=== PATIENT | male | born 1980 | race Caucasian/White ===

== ENCOUNTER → 2020-06-15 06:48 | Outpatient (CLI) | payer BC, SELFPAY ==
[2020-06-15 08:03] LABS: Hematocrit 43.5 % (41-53); Mean Corpuscular HGB Conc 34.4 % (30-36); Mean Corpuscular Hemoglobin 30.3 PG (26-34); Mean Corpuscular Volume 88.1 fL (80-100); Platelet Count 306 X10^3/uL (150-400); Red Blood Cell Count 4.93 X10^6/uL (4.5-5.9); Red Cell Distribution Width 13.3 % (11.6-14.8); White Blood Cell Count 4.9 X10^3/uL (4.5-11.0)
[2020-06-15 08:37] LABS: Alanine Aminotransferase 81 IU/L (<50); Albumin 4.6 g/dL (3.5-5.0); Albumin Globulin Ratio 1.6 (1.0-2.8); Alkaline Phosphatase 62 U/L (38-126); Aspartate Aminotransferase 44 IU/L (17-59); BUN Creatinine Ratio 18.8 (6-22); Bilirubin Total 0.9 mg/dL (0.2-1.3); Blood Urea Nitrogen 18 mg/dL (9-20); Calcium 9.3 mg/dL (8.4-10.2); Carbon Dioxide 27 mmol/L (22-32); Chloride 105 mmol/L (98-107); Cholesterol 200 mg/dL (140-199); Estimated Glomerular Filt Rate > 60.0 mL/min (>60); Globulin 2.8 g/dL (1.7-4.1); Glucose 109 mg/dL (70-100); HDL Cholesterol 40 mg/dL (40-60); HEMOLYSIS < 15 (0-50); LDL Cholesterol Calculated 141 mg/dL (<100); Potassium 4.4 mmol/L (3.4-5.1); Sodium 138 mmol/L (137-145); Total Protein 7.4 g/dL (6.3-8.2); Triglycerides 96 mg/dL (35-150)
== END ==
PROVIDERS: PCP Nurse Practitioner Family; Referring Provider Nurse Practitioner Family; Visit Provider Nurse Practitioner Family
DX: Z00.00 Encounter for general adult medical examination without abnormal findings (principal); Z13.6 Encounter for screening for cardiovascular disorders
CPT/HCPCS: 36415; 80053; 80061; 85027

== ENCOUNTER → 2021-02-22 08:18 | Outpatient (CLI) | payer BC, SELFPAY ==
[2021-02-22] MEDS: COVID-19 VACC #1, MRNA(MOD) 100 MCG/0.5 ML VIAL IM (08:26)
== END ==
PROVIDERS: PCP Nurse Practitioner Family; Visit Provider Internal Medicine
DX: Z23 Encounter for immunization (principal)
CPT/HCPCS: 0011A; 91301

== ENCOUNTER → 2021-03-22 08:09 | Outpatient (CLI) | payer BC, SELFPAY ==
[2021-03-22] MEDS: COVID-19 VACC #2, MRNA(MOD) 100 MCG/0.5 ML VIAL IM (08:14)
== END ==
PROVIDERS: PCP Nurse Practitioner Family; Visit Provider Internal Medicine
DX: Z23 Encounter for immunization (principal)
CPT/HCPCS: 0012A; 91301

== ENCOUNTER → 2021-07-04 11:01 | Outpatient (CLI) | payer BC, SELFPAY ==
[2021-07-04 12:00] LABS: COVID19 -Nasal RAPID Negative (Negative)
== END ==
PROVIDERS: PCP Nurse Practitioner Family; Visit Provider Nurse Practitioner
DX: R09.81 Nasal congestion (principal); Z20.822 Contact with and (suspected) exposure to COVID-19
CPT/HCPCS: 87635

== ENCOUNTER → 2021-08-18 06:53 | Outpatient (CLI) | payer BC, SELFPAY ==
[2021-08-18 08:41] LABS: Hemoglobin A1C% w Est Avg Glu 5.3 % (4.0-6.0)
[2021-08-18 08:49] LABS: Alanine Aminotransferase 40 IU/L (<50); Albumin 4.5 g/dL (3.5-5.0); Albumin Globulin Ratio 1.8 (1.0-2.8); Alkaline Phosphatase 61 U/L (38-126); Aspartate Aminotransferase 38 IU/L (17-59); BUN Creatinine Ratio 19.8 (6-22); Bilirubin Total 0.7 mg/dL (0.2-1.3); Blood Urea Nitrogen 18 mg/dL (9-20); Calcium 9.6 mg/dL (8.4-10.2); Carbon Dioxide 31 mmol/L (22-32); Chloride 104 mmol/L (98-107); Cholesterol 182 mg/dL (140-199); Estimated Glomerular Filt Rate > 60.0 mL/min (>60); Globulin 2.5 g/dL (1.7-4.1); Glucose 99 mg/dL (70-100); HDL Cholesterol 43 mg/dL (40-60); HEMOLYSIS < 15 (0-50); LDL Cholesterol Calculated 120 mg/dL (<100); Potassium 4.6 mmol/L (3.4-5.1); Sodium 141 mmol/L (137-145); Triglycerides 94 mg/dL (35-150)
== END ==
PROVIDERS: PCP Nurse Practitioner Family; Referring Provider Nurse Practitioner Family; Visit Provider Nurse Practitioner Family
DX: R73.9 Hyperglycemia, unspecified (principal); R74.01 Elevation of levels of liver transaminase levels; E78.2 Mixed hyperlipidemia
CPT/HCPCS: 36415; 80053; 80061; 83036

== ENCOUNTER → 2021-11-08 06:39 | Outpatient (CLI) | payer BC, SELFPAY ==
--- NOTE | 2021-11-08 | DI.MRI.S_ITS ---
PROCEDURE: MR KNEE LT WO CON INDICATIONS: Complex tear of lateral meniscus, current injury, TECHNIQUE: Noncontrast sagittal PD fast spin echo and T2 fast spin echo with fat saturation, sagittal 3-D FLASH with fat saturation; coronal T1 spin echo and PD fast spin echo with fat saturation, and axial PD fast spin echo with fat saturation through the knee. COMPARISON: [facility], CR, XR KNEE ARTHRITIC SERIES BI, 10/05/2021, 15:33. FINDINGS: Image quality: Excellent. Menisci: There is a flap tear involving the posterior horn of the lateral meniscus extending to the superior articular surface. A small displaced fragment is noted. There is a nondisplaced horizontal tear of the posterior horn of the medial meniscus. The meniscal root ligaments appear intact. Cruciate ligaments: The anterior and posterior cruciate ligaments appear intact. Medial structures: The medial collateral ligament appears intact. The semimembranosus tendon insertions and meniscocapsular junction appear intact. Visualized portions of the pes anserinus tendons appear normal. No abnormal bursal fluid. Lateral structures: The lateral collateral ligament, long and short heads of the biceps femoris tendon appear intact. The popliteus tendon appears normal. Iliotibial band appears normal. Anterior structures: The quadriceps and patellar tendons appear intact. Mild quadriceps tendinitis. Patellar alignment is normal. No femoral trochlear dysplasia or ventral trochlear prominence. No edema in the infrapatellar fat pad. Bones and cartilage: No bone marrow contusions or fractures. 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 Joint space: There is small knee joint effusion. Trace Cool's cyst. Normal appearing synovial plicae are incidentally noted. IMPRESSION: 1. There is a flap tear of the posterior horn of the medial meniscus involving the superior articular surface. A small displaced meniscal fragment is noted. 2. Nondisplaced horizontal tear of the posterior horn of the medial meniscus. 3. Mild quadriceps tendinitis. 4. Mild tricompartmental chondral malacia. 5. Small knee joint effusion. Dictated by: Austin Myles M.D. on 11/08/2021 at 8:10 Approved by: Austin Myles M.D. on 11/08/2021 at 8:17
== END ==
PROVIDERS: PCP Nurse Practitioner Family; Referring Provider Orthopaedic Surgery; Visit Provider Orthopaedic Surgery
DX: S83.271A Complex tear of lateral meniscus, current injury, right knee, initial encounter (principal); M76.892 Other specified enthesopathies of left lower limb, excluding foot; M94.262 Chondromalacia, left knee; M25.462 Effusion, left knee
CPT/HCPCS: 73721

== ENCOUNTER → 2024-10-02 07:07 | Outpatient (CLI) | payer BC, SELFPAY ==
[2024-10-02 08:40] LABS: Hematocrit 43.7 % (41-53); Mean Corpuscular HGB Conc 34.3 % (30-36); Mean Corpuscular Volume 87.4 fL (80-100); Platelet Count 320 X10^3/uL (150-400); Red Cell Distribution Width 13.1 % (11.6-14.8); White Blood Cell Count 4.8 X10^3/uL (4.5-11.0)
== END ==
PROVIDERS: PCP Family Medicine; Referring Provider Family Medicine; Visit Provider Family Medicine
DX: Z13.9 Encounter for screening, unspecified (principal)
CPT/HCPCS: 36415; 85027

== ENCOUNTER → 2024-11-13 10:44 | Outpatient (CLI) | payer BC, SELFPAY ==
--- NOTE | 2024-11-13 | DI.MRI.S_ITS ---
PROCEDURE: MR KNEE RT W CON INDICATIONS: COMPLEX TEAR MEDIAL MENISCUS RIGHT KNEE TECHNIQUE: After the administration of 50 mL of dilute intra-articular Gadolinium contrast, sagittal T1 spin echo with fat saturation and PD fast spin echo with fat saturation, coronal T1 spin echo with and without fat saturation, coronal T2 fast spin echo with fat saturation, axial PD fast spin echo with fat saturation through the knee. COMPARISON: [facility], CR, XR KNEE ARTHRITIC SERIES BI, 04/16/2023, 13:57. [facility], [place], [place] ARHTROGRAM KNEE RT, 11/13/2024, 11:06. FINDINGS: Image quality: Excellent. Susceptibility art defect related to prior ACL reconstruction hardware limits evaluation. Additionally, please note that image retrieval of the 11/08/2021 left knee MRI exam was unsuccessful. Bones: Mild subchondral cyst formation marrow edema is present at the posterior-lateral tibial plateau and tibial eminence (09/13; 7/). The bone marrow signal is otherwise normal. There is no acute fracture or dislocation. Joints: Gadolinium-based intra-articular contrast is present within the knee joint. There is mild synovial proliferation. There is mild osteoarthritis. Cool's cyst: None. Menisci: Superimposed on mild maceration, there is a full-thickness tear of the medial meniscus at the posterior root-posterior horn junction (09/16), measuring 0.5 cm in width. Superimposed on possible prior partial meniscectomy, there is a complex tear of the posterior horn of the lateral meniscus that extends to the posterior root attachment (05/29-12; 09/19). Cruciate ligaments: Status post ligamentous reconstruction, there is a slightly greater than expected acute angulation of the graft fibers with intermediate signal (06/10) and osseous remodeling of the intercondylar notch (07/18). There is a 1.1 cm focus of intermediate signal intra-articular tissue lying anterior to the tibial insertion site of the anterior cruciate ligament graft (06/10). The posterior cruciate ligament is mildly intermediate in signal but intact. Collateral ligaments: The medial collateral ligament complex is normal. The lateral collateral ligament complex is normal. Popliteus Muscle/Tendon: The popliteus muscle and tendon are normal. Extensor mechanism: There is intermediate signal and thickening of the quadriceps tendon. There is mild thickening of the patellar tendon with susceptibility artifact, likely representing an allograft site. The medial and lateral patellar retinacular attachments are normal. Articular cartilage: Multifocal areas of deep partial thickness chondral loss are present throughout the posterior weight-bearing lateral and medial compartment (10/25). Partial-thickness chondral loss is also present at the nonweightbearing lateral femoral condyle (7/9) and throughout the patellofemoral compartment. Other: Susceptibility artifact is present overlying the patellar plate and Hoffa's fat pad, likely related to ACL reconstruction. IMPRESSION: 1. Status post ACL reconstruction with MR signs suggestive of notch impingement and graft degeneration. No focal tear. 2. Possible focal intra-articular arthrofibrosis anterior to the tibial attachment of the ACL graft site. 3. Full-thickness tear of the medial meniscus at the posterior horn-posterior root junction. 4. Complex tear of the posterior horn of the lateral meniscus with involvement of the posterior root attachment. 5. Chronic PCL sprain without a focal tear. 6. Mild quadriceps tendinosis. 7. Mild knee osteoarthritis with synovitis and associated articular cartilage defects. Dictated by: aRmin Aden M.D. on 11/13/2024 at 21:31 Approved by: Ramin Aden M.D. on 11/13/2024 at 21:46
--- NOTE | 2024-11-13 | DI.RAD.S_ITS ---
PROCEDURE: [place] ARHTROGRAM KNEE RT INDICATIONS: COMPLEX TEAR MEDIAL MENISCUS RIGHT KNEE COMPARISON: None. TECHNIQUE: The indications, alternatives, benefits, risks, and complications of the procedure were explained to the patient. Written informed consent was obtained and placed in the chart. The knee was examined fluoroscopically, and a site chosen for knee joint injection. The skin was prepped and draped in a sterile fashion, and 1% Lidocaine infiltrated from the skin down to the articular surface. A hypodermic needle was then introduced into the joint and iodinated contrast media was instilled to confirm the intra-articular needle tip placement. This was followed by approximately 50 mL dilute solution of a gadolinium containing MR contrast agent. The needle was removed and a bandage was applied. An Mariano wrap was then applied around the knee joint to keep the contrast from collecting in the suprapatellar recess. The patient experienced no complications throughout the procedure and left the fluoroscopic suite in no apparent distress. FINDINGS: Single fluoroscopic spot image demonstrates intra-articular location to injected iodinated contrast. IMPRESSION: Successful fluoroscopically guided administration of dilute Gadolinium solution into the knee joint for MR arthrogram. Dictated by: Sherif Rosario M.D. on 11/13/2024 at 16:19 Approved by: Sherif Rosario M.D. on 11/13/2024 at 16:20
[2024-11-13] MEDS: LIDOCAINE 1% 20 ML INJ (11:19)
[2024-11-13] MEDS: SODIUM CHLORIDE 0.9 % 20 ML VIAL IV (11:19)
== END ==
PROVIDERS: PCP Family Medicine; Referring Provider Orthopaedic Surgery; Visit Provider Orthopaedic Surgery
DX: S83.232D Complex tear of medial meniscus, current injury, left knee, subsequent encounter (principal); S83.271D Complex tear of lateral meniscus, current injury, right knee, subsequent encounter; S83.521A Sprain of posterior cruciate ligament of right knee, initial encounter; M17.11 Unilateral primary osteoarthritis, right knee; M65.98 Unspecified synovitis and tenosynovitis, other site; Z98.890 Other specified postprocedural states
CPT/HCPCS: 27369; 27370; 73580; 73722; A9579; Q9967

== ENCOUNTER → 2025-10-06 06:54 | Outpatient (CLI) | payer BC, SELFPAY ==
[2025-10-06 07:47] LABS: Hematocrit 44.1 % (41-53); Hemoglobin 15.3 g/dL (13.5-17.5); Mean Corpuscular HGB Conc 34.8 % (30-36); Mean Corpuscular Hemoglobin 29.9 PG (26-34); Mean Corpuscular Volume 85.8 fL (80-100); Platelet Count 315 X10^3/uL (150-400)
[2025-10-06 07:59] LABS: Hemoglobin A1C% w Est Avg Glu 5.3 % (4.0-6.0)
[2025-10-06 08:11] LABS: Alanine Aminotransferase 38 IU/L (<50); Albumin 4.7 g/dL (3.5-5.0); Albumin Globulin Ratio 1.8 (1.0-2.8); Alkaline Phosphatase 71 U/L (38-126); Blood Urea Nitrogen 16 mg/dL (9-20); Calcium 9.2 mg/dL (8.4-10.2); Carbon Dioxide 27 mmol/L (22-32); Chloride 104 mmol/L (98-107); Estimated Glomerular Filt Rate > 60 mL/min (>60); Globulin 2.6 g/dL (1.7-4.1); Glucose 115 mg/dL (70-99); HDL Cholesterol 48 mg/dL (40-60); HEMOLYSIS < 15 (0-50); Potassium 4.7 mmol/L (3.4-5.1); Sodium 139 mmol/L (137-145); Total Protein 7.3 g/dL (6.3-8.2)
[2025-10-06 08:12] LABS: Cholesterol 197 mg/dL (140-199); Triglycerides 115 mg/dL (35-150)
[2025-10-06 08:25] LABS: Free T4, Direct Thyroxine 1.21 ng/dL (0.78-2.19)
[2025-10-06 08:39] LABS: Thyroid Stimulating Hormone 1.88 uIU/mL (0.47-4.68)
== END ==
PROVIDERS: PCP Family Medicine; Referring Provider Family Medicine; Visit Provider Family Medicine
DX: Z13.9 Encounter for screening, unspecified (principal)
CPT/HCPCS: 36415; 80053; 80061; 83036; 84439; 84443; 85027

== ENCOUNTER 2025-11-20 10:32 | Emergency (ER) | payer BC, SELFPAY ==
[2025-11-20 10:35] VITALS: BP 170/96; PULSE 88; RESP 15; TEMP 36.1; O2SAT 98; BMI 29.9
--- NOTE | 2025-11-20 10:41 | ED.BACK ---
HPI - Back Pain/Injury General Chief Complaint: Back Pain/Injury Stated Complaint: Back pain/t-14 Time Seen by Provider: 11/20/25 10:36 Source: patient History of Present Illness HPI Narrative: 45-year-old male presents with low back pain x2 weeks seen by the chiropractor recently with inversion table as well the came back again in the middle of the back unrelieved with Tylenol and Advil. Patient has been working out trying to strengthen his core stability but does not recall any other inciting event that may have caused this. He denies any gait instability, numbness, tingling, down the legs, bowel or bladder incontinence, abdominal pain. Other than what is stated 14 pt ROS is negative. Related Data Home Medications ?Medication ?Instructions ?Recorded ?Confirmed ibuprofen 200 mg tablet 400 mg PO DAILY PRN 10/06/19 06/23/25 Previous Rx's ?Medication ?Instructions ?Recorded prednisone 50 mg tablet 50 mg PO DAILY #5 tabs 06/23/25 diclofenac sodium 75 mg 75 mg PO BID PRN pain #30 tabs 11/20/25 tablet,delayed release hydrocodone 5 mg-acetaminophen 325 1 tab PO Q4-6H PRN pain #20 tabs 11/20/25 mg tablet Allergies Allergy/AdvReac Type Severity Reaction Status Date / Time No Known Drug Allergies Allergy Verified 11/20/25 10:35 Review of Systems Review of Systems ROS Unobtainable: All systems reviewed & are unremarkable except as noted in HPI and below Patient History Medical History (Updated 11/20/25 @ 13:16 by Sushant Kurtz, DO) Mixed hyperlipidemia (09/2020) Tension headache Encounter for wellness examination in adult (10/18/21) Elevated liver enzymes Fractures (~1990) Chicken pox (~1986) GERD without esophagitis (2016) Surgical History (Updated 10/08/19 @ 21:08 by Cristal Dalton) Anesthesia History of knee surgery (~1997) History of arthroscopy of knee (~2013) History of endoscopy (~2017) Family History (Updated 10/08/19 @ 21:12 by Cristal Dalton) Father Diabetes mellitus History of heart disease Mother Hyperlipidemia Grandfather History of heart disease Grandmother History of heart disease Grandfather History of heart disease Social History Smoking Status: Unknown if ever smoked second hand exposure: No alcohol intake: current (2 drinks/night) substance use type: does not use Smoking Status: Unknown if ever smoked Exam Narrative Exam Narrative: GENERAL: [45] year old patient appears stated age. Well-developed patient, in mild distress. HEAD: Atraumatic. Normocephalic. EYES: Pupils equal round and reactive. Extraocular motions intact. No scleral icterus. No injection or drainage. EXTREMITIES: No edema or joint tenderness. BACK: TTP L4-5 S1 midline TTP motor sensory intact +2 DP +2 PT cap refill less than 2 seconds NEURO: AOx3. SKIN: No rash or erythema of visible areas Initial Vital Signs Initial Vital Signs: Vital Signs Temperature 97.0 F L 11/20/25 10:35 Pulse Rate 88 11/20/25 10:35 Respiratory Rate 15 11/20/25 10:35 Blood Pressure 170/96 H 11/20/25 10:35 Pulse Oximetry 98 11/20/25 10:35 Oxygen Delivery Method Room Air 11/20/25 10:35 Course Orders Ordered: ED Orders 11/20/25 10:40 CT lumbar spine wo con Stat Discontinued Medications Hydrocodone Bitart/Acetaminophen (Hydrocodone/Acet 5/325 Tablet) 1 tab PO NOW ONE Stop: 11/20/25 10:41 Last Admin: 11/20/25 10:45 Dose: 1 tab Documented By: VENECIA Ibuprofen (Ibuprofen 400 Mg Tablet) 800 mg PO NOW ONE Stop: 11/20/25 10:41 Last Admin: 11/20/25 10:45 Dose: 800 mg Documented By: VENECIA Vital Signs Vital signs: Vital Signs - 8 hr 11/20/25 10:35 Temperature 97.0 F L Pulse Rate 88 Respiratory Rate 15 Blood Pressure 170/96 H Pulse Oximetry 98 Oxygen Delivery Method Room Air MDM - Back Pain/Injury Imaging Data Extremity x-ray #1: Radiologist's Impression: [address] [address] [address] Scan Report Signed Patient: Goyo Pena MR#: [id number] : 1980 Acct:[id number] Age/Sex: 45 / M Date of Service: 11/20/25 Loc: ED Accession Number: [id number] Procedure: CT lumbar spine wo con Ordering Provider: Sushant Kurtz D.O. PROCEDURE: CT LUMBAR SPINE WO CON INDICATIONS: mid back pain for 14 days TECHNIQUE: Noncontrast 3 mm thick sections acquired from the T12 level to the sacrum. Sagittal and coronal reformats were constructed. For radiation dose reduction, the following was used: automated exposure control. COMPARISON: None. FINDINGS: Image quality: Diagnostic Bones: There is normal bony alignment. No acute vertebral body compression fractures. No suspicious lytic or blastic bony lesions. No pars defects. Soft tissues: No retroperitoneal masses or hematomas. Visualized aorta is normal in caliber. IMPRESSION: No acute fracture or traumatic subluxation. No significant degenerative changes. Approved by: Yina Chavarria M.D.,Ph.D. on 11/20/2025 at 11:52 MDM Narrative Medical decision making narrative: All labwork, vital signs, [employer] consultant note, med list, previous ER visits and all imaging studies reviewed. Ct scan showed no acute fx or traumatic subluxation. No significant deg changes. Differential diagnosis fracture osteoarthritis spondylosis strain. DC home on diclofenac and [place] follow up with PCP next week Discharge Plan Departure Patient Disposition: Home Clinical Impression: Low back pain Instructions: DI for Low Back Pain Activity Restrictions/Additional Instructions: Return with new or worsening symptoms. Follow up PCP in 1 week if no improvement in symptoms. Take medicines as directed. Prescriptions: New diclofenac sodium 75 mg tablet,delayed release (DR/EC) 75 mg PO BID PRN (Reason: pain) Qty: 30 0RF hydrocodone-acetaminophen 5-325 mg tablet 1 tab PO Q4-6H PRN (Reason: pain) Qty: 20 0RF No Action prednisone 50 mg tablet 50 mg PO DAILY Qty: 5 0RF ibuprofen 200 mg tablet 400 mg PO DAILY PRN Referrals: Rich Hanks DO [Primary Care Provider, Family Practice] Stand Alone Forms: Patient Portal/API
[2025-11-20] MEDS: IBUPROFEN 400 MG TABLET 800 MG PO (10:45)
[2025-11-20 13:22] VITALS: BP 140/95; PULSE 52; O2SAT 100
[2025-11-20 13:43] LABS: Ictotest Urine Negative (Negative)
== END 2025-11-20 13:26 | disposition home or self-care (01) ==
PROVIDERS: Emergency Provider Family Medicine; PCP Family Medicine
DX: M54.50 Low back pain, unspecified (principal)
CPT/HCPCS: 72131; 81003; 99283; 99284